=== PATIENT | female | born 1970 | race Caucasian/White ===

== ENCOUNTER 2017-11-01 20:20 | Emergency (ER) | payer SELFPAY ==
[2017-11-01 20:38] VITALS: O2SAT 99
--- NOTE | 2017-11-01 21:01 | C.PDOC ---
History Of Present Illness 47 yr old female presents to ED with complaints of a productive cough for the past 7 days, associated with a rash on stomach and arms. Patient reports she has had no relief after taking nyquil. Denies chills, fever, nausea, vomiting, itching, known and Hx of smoking. Chief Complaint (Nursing): Shortness Of Breath History Per: Patient History/Exam Limitations: no limitations Onset/Duration Of Symptoms: Days (7) Current Symptoms Are (Timing): Still Present Initiating Event: Other (Not known) Associated Symptoms: Productive Cough. denies: Fever, Chills Recent travel outside of the [place]: No Past Medical History Reviewed: Historical Data, Nursing Documentation, Vital Signs Vital Signs: Last Vital Signs Temp 98.1 F 11/01/17 22:45 Pulse 77 11/01/17 22:45 Resp 18 11/01/17 22:45 BP 129/68 11/01/17 22:45 Pulse Ox 99 11/01/17 22:45 - Medical History PMH: Asthma Surgical History: No Surg Hx Family History: States: Unknown Family Hx - Social History Hx Tobacco Use: No Hx Alcohol Use: No Hx Substance Use: No - Immunization History Hx Tetanus Toxoid Vaccination: No Hx Influenza Vaccination: No Hx Pneumococcal Vaccination: No Review Of Systems Constitutional: Negative for: Fever, Chills Respiratory: Positive for: Cough Gastrointestinal: Negative for: Nausea, Vomiting Physical Exam - Physical Exam Appears: Non-toxic, No Acute Distress Skin: Warm, Dry, Rash (small non-raised on abdomen, both arms and antecubital areas) Head: Atraumatic, Normacephalic Eye(s): bilateral: Normal Inspection Oral Mucosa: Moist Throat: Normal, No Erythema Neck: Normal, Supple Chest: Symmetrical, No Tenderness Cardiovascular: Rhythm Regular Respiratory: Normal Breath Sounds, No Rales, No Rhonchi, No Wheezing Gastrointestinal/Abdominal: Soft, No Tenderness Extremity: Normal ROM (x4) Neurological/Psych: Oriented x3, Normal Speech ED Course And Treatment - Laboratory Results Result Diagrams: 11/01/17 21:17 11/01/17 21:17 ECG: Interpreted By Me ECG Rhythm: Sinus Rhythm ECG Interpretation: Normal Rate From EC O2 Sat by Pulse Oximetry: 99 (Room air) Pulse Ox Interpretation: Normal Medical Decision Making Medical Decision Making: Ordered CXR and Blood Work. Administered Abby TRAYLOR Disposition - Disposition Referrals: Non [facility] Provider, [Primary Care Provider] - Disposition: HOME/ ROUTINE Disposition Time: 11:00 Condition: GOOD Additional Instructions: Patient is to be discharged home per Dr. Carr. Patient will need to take Z- Pack for the next 6 days, Robitussin as needed for cough and also Flonase for allergy relief if needed. Patient will need to follow up with her PMD or [facility] after discharge for post ED followup and primary care. Prescriptions: Azithromycin [Z-Jakub] 250 mg PO DAILY 5 Days #6 tab Fluticasone Propionate [Flonase Allergy Relief] 9.9 ml NS BID 30 Days #1 spray.susp guaiFENesin/Dextromethorphan [guaiFENesin-DM] 10 ml PO Q4H PRN 15 Days #120 udc PRN Reason: Cough Instructions: Acute Bronchitis (GEN) Forms: [employer] (Belizean) - Clinical Impression Clinical Impression: Respiratory tract infection, Bronchitis - Scribe Statement The provider has reviewed the documentation as recorded by the Dilipibalisson Meeks All medical record entries made by the Dilipibalisson were at my direction and personally dictated by me. I have reviewed the chart and agree that the record accurately reflects my personal performance of the history, physical exam, medical decision making, and the department course for this patient. I have also personally directed, reviewed, and agree with the discharge instructions and disposition.
[2017-11-01] MEDS ORDERED: guaiFENesin DM 200 mg-20 mg/10 ml UD PO STA (21:06)
[2017-11-01 21:25] LABS: BASO # 0.1 K/uL (0.0-0.2); BASO % 0.8 % (0.0-2.0); EOS # 0.3 K/uL (0.0-0.7); EOS % 2.5 % (0.0-4.0); HEMATOCRIT 36.9 % (34.0-47.0); LYMPH # 2.7 K/uL (1.0-4.3); LYMPH % 24.4 % (20.0-40.0); MEAN CELL VOLUME 85.1 fL (81.0-99.0); MEAN CORPUSCULAR HEMOGLOBIN 28.8 pg (27.0-31.0); MEAN CORPUSCULAR HGB CONC 33.9 g/dL (33.0-37.0); MEAN PLATELET VOLUME 8.8 fL (7.2-11.7); MONO % 9.1 % (0.0-10.0); RED CELL DISTRIBUTION WIDTH 13.5 % (11.5-14.5); WHITE BLOOD COUNT 11.3 K/uL (4.8-10.8)
[2017-11-01] MEDS ORDERED: guaiFENesin DM 200 mg-20 mg/10 ml UD ONE (21:32)
[2017-11-01 21:34] LABS: ALB/GLOB RATIO 1.2 (1.0-2.1); ALKALINE PHOSPHATASE 63 U/L (38-126); ALT/SGPT 31 U/L (9-52); AST/SGOT 15 U/L (14-36); BILIRUBIN,TOTAL 0.4 mg/dL (0.2-1.3); BLOOD UREA NITROGEN 10 mg/dL (7-17); CALCIUM 7.8 mg/dl (8.6-10.4); CARBON DIOXIDE 25 mmol/L (22-30); CHLORIDE 106 mmol/L (98-107); GFR AFRICAN-AMERICAN > 60; GLUCOSE,RANDOM 97 mg/dL (65-105); POTASSIUM 3.7 mmol/L (3.6-5.2); SODIUM 139 mmol/L (132-148); TOTAL PROTEIN 6.7 g/dL (6.3-8.3)
[2017-11-01 22:46] VITALS: BP 129/68; PULSE 77; RESP 18; TEMP 98.1
--- NOTE | 2017-11-02 11:58 | RAD ---
HISTORY: productive cough 7 days COMPARISON: Comparison is made to 11/27/2010 TECHNIQUE: Chest PA and lateral FINDINGS: LUNGS: No evidence of focal infiltrate or consolidation in the lungs PLEURA: No significant pleural effusion identified. No pneumothorax apparent. CARDIOVASCULAR: Normal. OSSEOUS STRUCTURES: No significant abnormalities. VISUALIZED UPPER ABDOMEN: Normal. OTHER FINDINGS: None. IMPRESSION: No radiographic evidence of pneumonia
--- NOTE | 2017-11-05 11:33 | CARD ---
APPROVED REPORT EKG Measurement Heart [id number] <Conclusion> Normal sinus rhythm Normal ECG
== END 2017-11-01 22:00 | disposition home or self-care (01) ==
LOC: SUPCPDRO 20:20 → C.ER 20:20
DX: J40 Bronchitis, not specified as acute or chronic (principal); J98.8 Other specified respiratory disorders

== ENCOUNTER 2017-12-16 09:34 | Emergency (ER) | payer SELFPAY ==
[2017-12-16 09:47] VITALS: RESP 18
--- NOTE | 2017-12-16 11:07 | C.PDOC ---
History Of Present Illness Pt c/o left eye tearing/discharge. Time Seen by Provider: 12/16/17 10:29 Chief Complaint (Nursing): Eye Problem History Per: Patient Onset/Duration Of Symptoms: Days (2) Current Symptoms Are (Timing): Still Present Injury To Eye?: No Severity: Mild Quality: Other (discharge) Wears Contact Lens?: No Associated Symptoms: Itching (?), Discharge From Eye Additional History Per: Prior Records Past Medical History Reviewed: Historical Data, Nursing Documentation, Vital Signs Vital Signs: Last Vital Signs Temp 98.4 F 12/16/17 09:47 Pulse 85 12/16/17 09:47 Resp 18 12/16/17 09:47 BP 137/82 12/16/17 09:47 Pulse Ox 95 12/16/17 09:47 - Medical History PMH: Asthma Family History: States: Unknown Family Hx - Social History Hx Tobacco Use: No Hx Alcohol Use: No Hx Substance Use: No - Immunization History Hx Tetanus Toxoid Vaccination: No Hx Influenza Vaccination: No Hx Pneumococcal Vaccination: No Review Of Systems Except As Marked, All Systems Reviewed And Found Negative. Constitutional: Negative for: Fever, Weakness Eyes: Positive for: Conjunctivae Inflammation. Negative for: Vision Change Cardiovascular: Negative for: Chest Pain Respiratory: Negative for: Shortness of Breath Gastrointestinal: Negative for: Vomiting, Abdominal Pain Musculoskeletal: Negative for: Neck Pain Skin: Negative for: Rash Neurological: Negative for: Weakness, Numbness, Headache Physical Exam - Physical Exam Appears: Non-toxic, No Acute Distress Skin: Normal Color, Warm, Dry, No Rash Head: Atraumatic, Normacephalic Eye(s): bilateral: PERRL, EOMI, left: Other (mild injection) Neck: Normal ROM, Supple Lymphatic: No Adenopathy Extremity: Normal ROM Neurological/Psych: Oriented x3, Normal Speech, Normal Cognition, Normal Cranial Nerves ED Course And Treatment O2 Sat by Pulse Oximetry: 95 Pulse Ox Interpretation: Normal Disposition Counseled Patient/Family Regarding: Diagnosis, Need For Followup, Rx Given - Disposition Referrals: Te Richardson MD [Staff Provider] - Disposition: HOME/ ROUTINE Disposition Time: 11:07 Condition: STABLE Additional Instructions: Follow up with an Auth Specialist (eye doctor). Return to the ER if you develop redness, swelling, fever, change in vision, worsening of symptoms or if you have any other concerns. Prescriptions: Polymyxin/Trimethoprim Sulfate [Polytrim Ophth Soln] 2 drop OS QID #1 bottle Instructions: Conjunctivitis (ED) - Clinical Impression Clinical Impression: Conjunctivitis, left eye
[2017-12-16 11:16] VITALS: BP 148/90; PULSE 70; TEMP 97.8; O2SAT 99
== END 2017-12-16 11:20 | disposition home or self-care (01) ==
LOC: C.ER 09:34
DX: H10.9 Unspecified conjunctivitis (principal)

== ENCOUNTER 2018-11-19 00:06 | Emergency (ER) | payer MEDICAID, OTHER ==
[2018-11-19 00:25] VITALS: O2SAT 97
--- NOTE | 2018-11-19 01:52 | C.PDOC ---
History Of Present Illness Patient complaining of headache, neck pain, and left reproducible laila wall pain, worsening over the last 2 days . No f/c/n/v. Tolerating po. States that sometimes she feels like she can't take a deep breath. Speaking in complete se ntences Time Seen by Provider: 11/19/18 01:52 Chief Complaint (Nursing): Chest Pain History Per: Patient History/Exam Limitations: no limitations Onset/Duration Of Symptoms: Days Current Symptoms Are (Timing): Still Present Context: Other Severity: Moderate Pain Scale Rating Of: 4 Quality: Dull, Aching Associated Symptoms: denies: Nausea, Dyspnea, Diaphoresis, Syncope Modifying Factors: None Exacerbating Factors: Movement, Deep Breathing Alleviating Factors: None Recent travel outside of the [place]: No Additional History Per: Patient Past Medical History Reviewed: Historical Data, Nursing Documentation, Vital Signs Vital Signs: Last Vital Signs Temp 97.7 F 11/19/18 00:10 Pulse 87 11/19/18 00:10 Resp 14 11/19/18 00:10 BP 129/89 11/19/18 00:10 Pulse Ox 97 11/19/18 00:10 - Medical History PMH: Asthma Family History: States: No Known Family Hx - Social History Hx Tobacco Use: No Hx Alcohol Use: No Hx Substance Use: No - Immunization History Hx Tetanus Toxoid Vaccination: No Hx Influenza Vaccination: No Hx Pneumococcal Vaccination: No Review Of Systems Constitutional: Negative for: Fever, Chills ENT: Negative for: Throat Pain Cardiovascular: Positive for: Chest Pain (reproducible, left cw) Respiratory: Positive for: Shortness of Breath (sometimes) Gastrointestinal: Negative for: Nausea, Vomiting, Abdominal Pain Musculoskeletal: Negative for: Back Pain Skin: Negative for: Rash Neurological: Negative for: Weakness Psych: Negative for: Anxiety Physical Exam - Physical Exam Appears: Non-toxic Skin: Warm, Dry Eye(s): bilateral: Normal Inspection Oral Mucosa: Moist Neck: Supple Chest: Symmetrical, Tenderness (left cw reproducible) Cardiovascular: Rhythm Regular Respiratory: No Rales, No Rhonchi, No Wheezing Gastrointestinal/Abdominal: Soft, No Tenderness, No Distention Extremity: Normal ROM Extremity: Bilateral: Atraumatic Neurological/Psych: Oriented x3 Gait: Steady ED Course And Treatment - Laboratory Results Result Diagrams: 11/19/18 02:24 12/26/18 02:24 ECG: Interpreted By Me, Viewed By Me ECG Rhythm: Sinus Rhythm (88), Nonspecific Changes O2 Sat by Pulse Oximetry: 97 Pulse Ox Interpretation: Normal Reevaluation Time: 04:39 Reassessment Condition: Improved Medical Decision Making Medical Decision Making: I considered the following diagnoses: acute coronary syndrome, pulmonary embolism, lower respiratory infection, aortic dissection/aneurysm, pneumothorax, pericarditis, esophagitis/GERD, zoster and esophageal rupture but found them to be unlikely based on the history, physical exam, and diagnostics. My conclusions regarding the unlikely diagnoses were based on: the absence of significant EKG abnormalities, the lack of suggestive x-ray findings, the absence of significant abnormalities on cardiac monitoring, the absence of asymmetric pulses. Pt is chest pain free and wants to go home Upon provider reevaluation patient is feeling better, is medically stable, and requires no further treatment in the ED at this time. Patient will be discharged home . Counseling was provided and all questions were answered regarding diagnosis and need for follow up with the referred clinic. There is agreement to discharge plan. Return if symptoms persist or worsen. Disposition Counseled Patient/Family Regarding: Studies Performed, Diagnosis, Need For Followup, Rx Given - Disposition Referrals: [facility] [Outside] [facility] [Outside] Disposition: HOME/ ROUTINE Disposition Time: 01:52 Condition: FAIR Additional Instructions: Please return if symptoms recur Prescriptions: Naproxen [Naprosyn] 1 tab PO BID PRN #25 tab PRN Reason: Pain Instructions: Costochondritis (DC) Forms: [facility] (Samoan) - Clinical Impression Clinical Impression: Costochondral chest pain
[2018-11-19] MEDS ORDERED: Aspirin 325 mg EC Tablets PO STA (02:07)
[2018-11-19 02:27] LABS: BASO # 0.1 K/uL (0.0-0.2); BASO % 1.2 % (0.0-2.0); EOS # 0.1 K/uL (0.0-0.7); EOS % 1.8 % (0.0-4.0); LYMPH % 27.2 % (20.0-40.0); MEAN CORPUSCULAR HEMOGLOBIN 28.9 pg (27.0-31.0); MEAN CORPUSCULAR HGB CONC 33.6 g/dL (33.0-37.0); MEAN PLATELET VOLUME 8.7 fL (7.2-11.7); MONO # 0.5 K/uL (0.0-0.8); MONO % 6.8 % (0.0-10.0); NEUT # 4.7 K/uL (1.8-7.0); NRBC % 0.1 % (0.0-2.0); RBC 4.49 Mil/uL (3.80-5.20); RED CELL DISTRIBUTION WIDTH 13.3 % (11.5-14.5); WHITE BLOOD COUNT 7.5 K/uL (4.8-10.8)
[2018-11-19 02:38] LABS: INR 1.1; PROTHROMBIN TIME 11.6 SECONDS (9.7-12.2)
[2018-11-19 02:42] LABS: ALB/GLOB RATIO 1.3 (1.0-2.1); ALBUMIN 4.4 g/dL (3.5-5.0); ALT/SGPT 32 U/L (9-52); AST/SGOT 27 U/L (14-36); BLOOD UREA NITROGEN 10 mg/dL (7-17); CALCIUM 8.7 mg/dl (8.6-10.4); GFR NON-AFRICAN AMERICAN > 60
[2018-11-19] MEDS ORDERED: Iodixanol 320 MG/ML 100 ML BOTTLE IV ONE (02:47)
[2018-11-19 02:54] LABS: B-TYPE NATRIURETIC PEPTIDE 60.4 pg/mL (0-450)
[2018-11-19 03:27] LABS: HCG,QUALITATIVE URINE NEGATIVE (NEGATIVE); SQUAMOUS EPITHIAL 1 /hpf (0-5); URINE BACTERIA OCC (<OCC); URINE BILIRUBIN NEGATIVE (NEGATIVE); URINE BLOOD NEGATIVE (NEGATIVE); URINE CLARITY Clear (Clear); URINE COLOR Straw (YELLOW); URINE GLUCOSE (UA) NORMAL (Normal); URINE LEUKOCYTE ESTERASE NEG Leu/uL (Negative); URINE PROTEIN NEGATIVE (NEGATIVE); URINE UROBILINOGEN NORMAL mg/dL (0.2-1.0)
[2018-11-19 04:53] VITALS: BP 121/71; PULSE 82; RESP 16; TEMP 98.2
--- NOTE | 2018-11-19 11:50 | CT ---
Date of service: 11/19/2018 PROCEDURE: CT Chest with contrast (Pulmonary Angiogram) HISTORY: chest pain, sob COMPARISON: None available. TECHNIQUE: Axial computed tomography images were obtained of the chest in the pulmonary arterial phase of enhancement. Coronal and sagittal reformatted images were created and reviewed. Intravenous contrast dose: 100 mL Visipaque 320 Radiation dose: Total exam DLP = 558.18 mGy-cm. This CT exam was performed using one or more of the following dose reduction techniques: Automated exposure control, adjustment of the mA and/or kV according to patient size, and/or use of iterative reconstruction technique. FINDINGS: PULMONARY ARTERIES: Unremarkable. No pulmonary embolism. AORTA: No acute findings. No thoracic aortic aneurysm. No aortic atherosclerotic calcification or mural plaque present. LUNGS: Unremarkable. No nodule, mass or pulmonary consolidation. PLEURAL SPACES: Unremarkable. No effusion or pneumothorax. HEART: Unremarkable. No cardiomegaly. No significant pericardial effusion. LYMPH NODES: No lymphadenopathy. BONES, CHEST WALL: Unremarkable. No fracture or destructive lesion OTHER FINDINGS: Left adrenal mass, 1.5 cm in greatest dimension. This measures 11 Hounsfield units in attenuation 1 8 postcontrast examination. Likely adrenal adenoma. No further evaluation required. IMPRESSION: No evidence of pulmonary embolism. Incidental left adrenal mass consistent with adenoma. The preliminary findings for this examination were reported by [facility] at time. There is concurrence of this report with the preliminary findings.
--- NOTE | 2018-11-20 22:34 | CARD ---
APPROVED REPORT Date of service: 11/19/2018 EKG Measurement Heart [id number] <Conclusion> Normal sinus rhythm Possible Left atrial enlargement Borderline ECG
== END 2018-11-19 04:53 | disposition home or self-care (01) ==
LOC: C.ER 00:06
DX: R07.9 Chest pain, unspecified (principal)
CPT/HCPCS: 71275; 80053; 81001; 83880; 84484; 84703; 85025; 85610; 85730; 93005; 96374; 99285; J1885; Q9967

== ENCOUNTER 2019-01-26 14:51 | Emergency (ER) | payer OTHER ==
[2019-01-26 15:02] VITALS: O2SAT 94
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
--- NOTE | 2019-01-26 17:09 | C.PDOC ---
Time Seen by Provider: 01/26/19 15:10 Chief Complaint (Nursing): Psychiatric Evaluation Past Medical History Vital Signs: Last Vital Signs Temp 97.7 F 01/26/19 14:59 Pulse 85 01/26/19 14:59 Resp 20 01/26/19 14:59 BP 164/88 H 01/26/19 14:59 Pulse Ox 94 L 01/26/19 14:59 - Medical History PMH: Asthma Denies: Diabetes (Patient denied.), Hepatitis (Patient denied.), HIV (Patient denied.), HTN (Patient denied.), Seizures (Patient denied.), Sexually Transmitted Disease (Patient denied.) Family History: States: Unknown Family Hx - Social History Hx Tobacco Use: No Hx Alcohol Use: No Hx Substance Use: No - Immunization History Hx Tetanus Toxoid Vaccination: Yes Hx Influenza Vaccination: No Hx Pneumococcal Vaccination: No ED Course And Treatment O2 Sat by Pulse Oximetry: 94 Disposition Counseled Patient/Family Regarding: Diagnosis, Need For Followup - Disposition Referrals: [facility] [Outside] Disposition: HOME/ ROUTINE Disposition Time: 17:00 Condition: STABLE Instructions: Adjustment Disorder Forms: [facility] [facility] (Peruvian), General Discharge Instructions Print Language: IRISH - Clinical Impression Clinical Impression: Adjustment disorder
[2019-01-26 17:20] VITALS: BP 156/87; PULSE 82; RESP 18; TEMP 98.1
== END 2019-01-26 17:00 | disposition home or self-care (01) ==
LOC: C.ER 14:51
DX: F43.20 Adjustment disorder, unspecified (principal)